=== PATIENT | male | born 1975 | race Two or more races ===

== ENCOUNTER 2023-11-03 14:56 | Emergency (ER) | payer OTHER, SELFPAY ==
--- NOTE | ~2023-11-03 | US_ITS ---
EXAMINATION: US SCROTUM CLINICAL INFORMATION: Severe left testicular pain. COMPARISON: None available. TECHNIQUE: A sonogram of the scrotum was performed assessing chang-scale appearance and color Doppler flow. Spectral Doppler analysis of the arterial and venous flow were performed in the testes bilaterally. FINDINGS: RIGHT: Right testicle measures 3.5 x 1.8 x 3.0 cm, volume 9.6 mL. No focal testicular parenchymal lesions are visualized. Spectral Doppler analysis of the arterial and venous flow is normal in the right testis. Right epididymal head is normal in size. There is mild hydrocele and varicocele. The hydrocele revealed thin septation. Right epididymal Doppler flow is normal. LEFT: Left testicle measures 4.1 x 1.6 x 2.7 cm, volume 9.2 mL. No focal testicular parenchymal lesions are visualized. Spectral Doppler analysis of the arterial and venous flow is normal in the left testis. Left epididymal head is normal in size. No left hydrocele but mild varicocele varicocele is seen. Left epididymal Doppler flow is normal There is ill-defined large heterogeneous area/mass or herniation at the midline, at the base of the penis, slightly to the left the areas not vascular or shadowing there is no vascular peristalsis seen. US/US scrotum IMPRESSION: Unclear origin mass at the base of the penis on the left not associated with testicular structures, possibly herniation, correlate with an enhanced CT scan. Electronically signed by: Lori Lundberg MD 11/03/2023 04:26 PM EDT
--- NOTE | ~2023-11-03 | US_ITS ---
EXAMINATION: US SCROTUM CLINICAL INFORMATION: Severe left testicular pain. COMPARISON: None available. TECHNIQUE: A sonogram of the scrotum was performed assessing chang-scale appearance and color Doppler flow. Spectral Doppler analysis of the arterial and venous flow were performed in the testes bilaterally. FINDINGS: RIGHT: Right testicle measures 3.5 x 1.8 x 3.0 cm, volume 9.6 mL. No focal testicular parenchymal lesions are visualized. Spectral Doppler analysis of the arterial and venous flow is normal in the right testis. Right epididymal head is normal in size. There is mild hydrocele and varicocele. The hydrocele revealed thin septation. Right epididymal Doppler flow is normal. LEFT: Left testicle measures 4.1 x 1.6 x 2.7 cm, volume 9.2 mL. No focal testicular parenchymal lesions are visualized. Spectral Doppler analysis of the arterial and venous flow is normal in the left testis. Left epididymal head is normal in size. No left hydrocele but mild varicocele varicocele is seen. Left epididymal Doppler flow is normal There is ill-defined large heterogeneous area/mass or herniation at the midline, at the base of the penis, slightly to the left the areas not vascular or shadowing there is no vascular peristalsis seen. US/US scrotum doppler IMPRESSION: Unclear origin mass at the base of the penis on the left not associated with testicular structures, possibly herniation, correlate with an enhanced CT scan. Electronically signed by: Lori Lundberg MD 11/03/2023 04:26 PM EDT
[2023-11-03 15:14] VITALS: BP 124/86; PULSE 84; RESP 16; TEMP 36.8; O2SAT 97; BMI 32.8
--- NOTE | 2023-11-03 15:16 | ED.GENADULT ---
HPI - General Adult General Chief complaint: Urogenital-Male Stated complaint: hernia Time Seen by Provider: 11/03/23 19:01 Source: patient Mode of arrival: ambulatory Limitations: no limitations History of Present Illness ED Provider: ayanna PARHAM narrative: Patient comes with left scrotal swelling for last few months we are significant pain no trauma patient was in custody and was lifting heavy stuff and noticed swelling in the left inguinal area leading to the scrotum no nausea no vomiting Related Data Allergies Allergy/AdvReac Type Severity Reaction Status Date / Time No Known Allergies Allergy Verified 11/03/23 15:15 Review of Systems Review of Systems: Yes all other systems are reviewed and are negative PMFSH Social History Social History Smoked in Last 30 Days: Yes Use of substances other than those prescribed or required for medical reasons: Yes 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 Oriented X3. No acute distress. Eyes: No pallor or icterus ENT: Pharynx normal. Oral Mucosa moist Neck: Normal inspection. Neck supple. CVS: Normal heart rate and rhythm. Pulses normal. Respiratory: No respiratory distress. Equal air entry bilateral, no wheezing/rales/rhonchi Abdomen: Soft and nontender. Bowel sounds are present, no mass palpable, no CVA tenderness : Left inguinal direct hernia partially reducible nontender. Testicles normal Skin: Skin warm and dry. Normal skin color. Normal skin turgor. Extremities: No lower extremity edema. No calf tenderness Neuro: Oriented X 3. No motor deficit. Course Course Course Narrative: This is a rapid medical exam performed by Klaudia Cordero NP: Additional HPI, ROS, PE not included below will be deferred to primary provider. Patient is a 48-year-old male presenting with severe left testicular pain. Plan: UA, U/S Medical Decision Making Medical Decision Making MDM Narrative: Patient's left inguinal indirect hernia in not incarcerated nontender partially reducible advised to follow with surgeon Lab Data MDM Lab Attestation statement: I reviewed the patient's lab results. 11/03/23 19:10 11/03/23 19:11 Labs: Lab Results 11/03/23 11/03/23 Range/Units 19:10 19:11 WBC 7.8 (4.8-10.8) X10*3/uL RBC 4.44 L (4.60-5.80) X10*6/uL Hgb 13.7 L (14.0-18.0) g/dl Hct 42.4 (42.0-52.0) % MCV 95.5 (80.0-98.0) fL MCH 30.9 (27.0-33.0) pg MCHC 32.3 (31.0-36.0) g/dl RDW 12.8 (11.0-16.0) % Plt Count 218 (160-400) X10*3/uL MPV 9.9 (9.4-12.4) fL Immature Gran % (Auto) 0.4 (0.0-0.4) % Neut % (Auto) 63.5 (45-73) % Lymph % (Auto) 25.3 (20-40) % Vance % (Auto) 7.4 (2-11) % Eos % (Auto) 2.8 (0-4) % Baso % (Auto) 0.6 (0-2) % Lymph # (Auto) 2.0 (1.2-4.9) X10*3/uL Vance # (Auto) 0.6 (0.1-1.2) X10*3/uL Eos # (Auto) 0.2 (0.0-0.4) X10*3/uL Baso # (Auto) 0.1 (0.0-0.2) X10*3/uL Abs Immat Gran (auto) 0.03 (0.00-0.03) X10*3/uL Absolute Neuts (auto) 4.9 (2.0-8.3) x10*3/uL Absolute Nucleated RBC 0.000 (0.0-0.012) X10*3/uL Nucleated RBC % (auto) 0.0 (0.0-0.2) /100WBC Sodium 141 (135-145) mmol/L Potassium 3.9 (3.3-5.1) mmol/L Chloride 105 (96-108) mmol/L Carbon Dioxide 29 (22-29) mmol/L Anion Gap 11 L (12-20) BUN 14 (9-16) mg/dL Creatinine 1.10 (0.5-1.4) mg/dL Estim Creat Clear Calc 92.2 Estimated GFR > 60 Random Glucose 114 (60-115) mg/dL Calcium 9.0 (8.4-10.2) mg/dL Total Bilirubin 0.4 (0.0-1.0) mg/dL AST 17 (5-37) U/L ALT 15 (0-40) U/L Alkaline Phosphatase 48 (39-117) U/L Total Protein 7.1 (6.5-8.0) g/dL Albumin 3.9 (3.5-5.0) g/dL Radiology Impression Discussion of test interpretation with radiology: I have reviewed the radiologist's reading. Radiologist Impression: Close Scrotum Ultrasound (Signed) Lori Lundberg - 11/03/23 Launch?Image [place] [id number] Ultrasound Report Signed Patient: Luis Helton MR#: [id number] : 1975 Acct:[id number] Age/Sex: 48 / M ADM Date: 11/03/23 Loc: HO.ED Attending Dr: Ordering Physician: Elena Cordero NP Date of Service: 11/03/23 Procedure(s): US scrotum Accession Number(s): [id number] cc: Physician,Unknown ; Elena Cordero NP~ EXAMINATION: US SCROTUM CLINICAL INFORMATION: Severe left testicular pain. COMPARISON: None available. TECHNIQUE: A sonogram of the scrotum was performed assessing chang-scale appearance and color Doppler flow. Spectral Doppler analysis of the arterial and venous flow were performed in the testes bilaterally. FINDINGS: RIGHT: Right testicle measures 3.5 x 1.8 x 3.0 cm, volume 9.6 mL. No focal testicular parenchymal lesions are visualized. Spectral Doppler analysis of the arterial and venous flow is normal in the right testis. Right epididymal head is normal in size. There is mild hydrocele and varicocele. The hydrocele revealed thin septation. Right epididymal Doppler flow is normal. LEFT: Left testicle measures 4.1 x 1.6 x 2.7 cm, volume 9.2 mL. No focal testicular parenchymal lesions are visualized. Spectral Doppler analysis of the arterial and venous flow is normal in the left testis. Left epididymal head is normal in size. No left hydrocele but mild varicocele varicocele is seen. Left epididymal Doppler flow is normal There is ill-defined large heterogeneous area/mass or herniation at the midline, at the base of the penis, slightly to the left the areas not vascular or shadowing there is no vascular peristalsis seen. US/US scrotum IMPRESSION: Unclear origin mass at the base of the penis on the left not associated with testicular structures, possibly herniation, correlate with an enhanced CT scan. Electronically signed by: Lori Lundberg MD 11/03/2023 04:26 PM EDT RP Discharge Plan Discharge Clinical Impression: Direct inguinal hernia of left side Patient Disposition: Home, Self-Care Instructions: Inguinal Hernia (ED) Additional Instructions: Do not lift any heavy weights Wear scrotal support as advised See surgeon next week for further management Report to ER if suddenly increased pain/vomiting Referrals: Jeremy De La Rosa MD [Physician] - 3 days Interventions: ED Discharge Assessment Last Done: 11/03/23 19:36 Discharge Date/Time: 11/03/23 19:36 Print Language: Romanian
[2023-11-03 18:49] VITALS: BP 131/87; PULSE 72; RESP 16; TEMP 36.6; O2SAT 99
--- NOTE | 2023-11-03 19:08 | MHC.EDTECH ---
DIRTY URINE COLLECTED AND SENT TO LAB ,PT NOT ABLE TO GIVE CLEAN URINE SAMPLE .
[2023-11-03 19:16] LABS: MANUAL DIFF FLAG NO
[2023-11-03 19:20] LABS: Basophils Absolute Auto 0.1 X10*3/uL (0.0-0.2); Basophils Percent Auto 0.6 % (0-2); Eosinophils Absolute Auto 0.2 X10*3/uL (0.0-0.4); Eosinophils Percent Auto 2.8 % (0-4); Hematocrit 42.4 % (42.0-52.0); Hemoglobin 13.7 g/dl (14.0-18.0); Imm Gran Abs Auto 0.03 X10*3/uL (0.00-0.03); Imm Gran Pct Auto 0.4 % (0.0-0.4); Lymphocytes Percent Auto 25.3 % (20-40); Mean Corpuscular HGB Conc 32.3 g/dl (31.0-36.0); Mean Corpuscular Hemoglobin 30.9 pg (27.0-33.0); Mean Corpuscular Volume 95.5 fL (80.0-98.0); Mean Platelet Volume 9.9 fL (9.4-12.4); Monocytes Absolute Auto 0.6 X10*3/uL (0.1-1.2); Monocytes Percent Auto 7.4 % (2-11); Neutrophils Absolute Auto 4.9 x10*3/uL (2.0-8.3); Neutrophils Percent Auto 63.5 % (45-73); Platelet Count 218 X10*3/uL (160-400); Red Blood Count 4.44 X10*6/uL (4.60-5.80); Red Cell Distribution Width 12.8 % (11.0-16.0); White Blood Count 7.8 X10*3/uL (4.8-10.8)
--- NOTE | 2023-11-03 19:25 | MHC.EDTECH ---
Patient blood drawn and sent to lab .
[2023-11-03 19:34] LABS: Alanine Aminotransferase 15 U/L (0-40); Albumin Level 3.9 g/dL (3.5-5.0); Alkaline Phosphatase 48 U/L (39-117); Anion Gap 11 (12-20); Aspartate Amino Transferase 17 U/L (5-37); Bilirubin Total 0.4 mg/dL (0.0-1.0); Blood Urea Nitrogen 14 mg/dL (9-16); Carbon Dioxide 29 mmol/L (22-29); Chloride 105 mmol/L (96-108); Creatinine Clr Calc Pharmacy 92.2; Estimated Glomerular Filt Rate > 60; Glucose Random 114 mg/dL (60-115); Potassium 3.9 mmol/L (3.3-5.1); Sodium 141 mmol/L (135-145); Total Protein 7.1 g/dL (6.5-8.0)
[2023-11-03 19:36] VITALS: BP 131/87; PULSE 72; RESP 16; TEMP 36.6; O2SAT 99
== END 2023-11-03 19:36 | disposition home or self-care (01) ==
PROVIDERS: Emergency Provider Internal Medicine
DX: K40.90 Unilateral inguinal hernia, without obstruction or gangrene, not specified as recurrent (principal); N50.82 Scrotal pain
CPT/HCPCS: 36415; 76870; 80053; 85025; 93975; 99284

== ENCOUNTER 2023-12-17 09:19 | Outpatient (AMB) | payer OTHER, SELFPAY ==
--- NOTE | 2023-12-17 09:29 | MHC.OFFVIS ---
Vital Signs 12/17/23 09:32 Height 5 ft 7 in Weight 204 lb 9.423 oz BMI 32.0 Pulse 72 Intake Visit Reasons: Hernia~groin Intake Note: Patient is seen in office for ER follow up visit, following left groin hernia Pt c/o: onset over a year, use to do heavy lifting for work, feels a lump on the left groin, reducible, denies n/v/d/c, ultrasound done. ER/US: 11/03/23 Or[employer] Manager Required: No Accompanied by: Self / Same As Patient Allergies No Known Allergies Allergy (Verified 12/17/23 09:30) HPI Comments Details: Patient was evaluation of a left inguinal hernia. He has had this least 1 year's time. He is quite large and symptomatic and he would like to have it repaired. He was recently incarcerated and expressed his hernia 2 the penal system but he says his request for attention for this were ignored. The meantime, patient was tolerating a diet. Having regular bowel habits. He is relatively active. Chart was reviewed and patient evaluated. [facility] Social History (Updated 12/17/23 @ 09:31 by MARK Bates) Alcohol intake: current Alcohol intake frequency: holidays/special occasions only Patient Tobacco Use Status: Current everyday Tobacco user Substance Use Type: Heroin and Marijuana Physical Exam Vital Signs: Last Vital Signs Pulse 72 12/17/23 09:32 BMI result Body Mass Index 32.0 Chest Other: Chest breath sounds bilaterally, HS 1 in 2 GI Other: Patient was examined both supine and standing with Valsalva. Abdomen mildly corpulent, soft, benign. Right groin negative. Right testicle within normal limits. Patient has a massive complete/left scrotal hernia. Difficult to palpate left testicle secondary to the [place] of this hernia. This was irreducible/incarcerated. Assessment & Plan Assessment & Plan (1) Incarcerated left inguinal hernia: Code(s): K40.30 - Unilateral inguinal hernia, with obstruction, without gangrene, not specified as recurrent Category: Surgical Plan Risks, benefits, alternatives of open left inguinal hernia repair with mesh were reviewed with the patient and included but not limited to bleeding, infection, recurrence, numbness, pain, scarring and the patient wished to proceed. All questions answered. Arrangements made for this. Apparently patient was not have a primary care doctor and arrangements were made for this as well in order to obtain medical clearance prior to surgery. Coding Level of Care Code New Pt Level 5 (68614) Diagnoses Incarcerated left inguinal hernia K40.30
[2023-12-17 09:32] VITALS: PULSE 72; BMI 32.0
== END 2023-12-17 09:40 | disposition home or self-care (01) ==
LOC: HO.HGS 09:19
PROVIDERS: Visit Provider Surgery
DX: K40.30 Unilateral inguinal hernia, with obstruction, without gangrene, not specified as recurrent (principal)
CPT/HCPCS: 99204

== ENCOUNTER → 2023-12-17 09:19 | Outpatient (BNVA) | payer OTHER, SELFPAY | PROVIDERS: Visit Provider Surgery | DX: K40.30 Unilateral inguinal hernia, with obstruction, without gangrene, not specified as recurrent (principal) | CPT/HCPCS: 99202 ==